=== PATIENT | male | born 1950 | race Caucasian/White ===

== ENCOUNTER 2024-11-22 11:50 | Inpatient (IN) | payer MEDICARE ==
--- NOTE | 2024-11-22 12:23 | ED ---
General Adult HPI - General Chief complaint: Extremity Problem,Nontraumatic Stated complaint: Left arm weakness Time Seen by Provider: 11/22/24 12:01 Source: patient, RN notes reviewed Mode of arrival: ambulatory Limitations: no limitations - History of Present Illness Initial comments: Patient is a 74-year-old male present to the emergency department with concerns for left arm weakness. Onset of symptoms was when he woke this morning. Symptoms have improved. Patient does have an odd sensation to his left arm that has mostly improved. No headache. No neck pain. Patient does have minimal discomfort left trapezius. On examination patient feels weakness has resolved. Patient does have chronic Dupuytren's contracture in left hand. - Related Data Home Medications Medication Instructions Recorded Confirmed No Known Home Medications 11/22/24 11/22/24 Allergies Allergy/AdvReac Type Severity Reaction Status Date / Time No Known Allergies Allergy Verified 11/22/24 16:30 Review of Systems ROS Statement: Those systems with pertinent positive or pertinent negative responses have been documented in the HPI. ROS Other: All systems not noted in ROS Statement are negative. Constitutional: Denies: fever Eyes: Denies: eye pain ENT: Denies: ear pain Respiratory: Denies: cough Cardiovascular: Denies: chest pain Musculoskeletal: Reports: as per HPI Neurological: Reports: as per HPI. Denies: headache Past Medical History Past Medical History: No Reported History Past Surgical History: No Surgical Hx Reported Smoking Status: Current every day smoker Past Alcohol Use History: Occasional Past Drug Use History: Marijuana General Exam Limitations: no limitations General appearance: alert, in no apparent distress Head exam: Present: normocephalic Eye exam: Present: normal appearance, PERRL, EOMI Neck exam: Present: normal inspection. Absent: tenderness, meningismus Respiratory exam: Present: normal lung sounds bilaterally Cardiovascular Exam: Present: regular rate, normal rhythm, systolic murmur Expanded Peripheral pulses: 2+: Radial (L) GI/Abdominal exam: Present: soft. Absent: tenderness Extremities exam: Present: other (Dupuytren's contraction left hand) Back exam: Present: normal inspection. Absent: tenderness Neurological exam: Present: alert, oriented X3, CN II-XII intact. Absent: motor sensory deficit Expanded Neurological exam: Present: protecting the airway Speech: Present: fluid speech Cranial nerves: EOM's Intact: Normal, Facial Sensation: Normal Sensory exam: Upper Extremity Light Touch: Normal, Lower Extremity Light Touch: Normal Motor strength exam: RUE: 5, LUE: 5, RLE: 5, LLE: 5 Eye Response: (4) open spontaneously Motor Response: (6) obeys commands Verbal Response: (5) oriented Psychiatric exam: Present: normal affect, normal mood Skin exam: Present: normal color Course Vital Signs 11/22/24 11/22/24 11/22/24 11:51 13:00 15:00 Temperature 97.6 F Pulse Rate 56 L 52 L 52 L Respiratory 17 16 16 Rate Blood Pressure 148/88 146/84 138/85 O2 Sat by Pulse 98 98 100 Oximetry 11/22/24 16:00 Temperature Pulse Rate 51 L Respiratory 18 Rate Blood Pressure 140/84 O2 Sat by Pulse 99 Oximetry EKG Findings - EKG Results: EKG: interpreted by DORIE, sinus rhythm, normal axis, normal QRS, normal ST/T EKG shows: bradycardia Medical Decision Making - Medical Decision Making Was pt. sent in by a medical professional or institution (, PA, HEM MARKER, urgent care, hospital, or detention...) When possible be specific @ -No Did you speak to anyone other than the patient for history (EMS, parent, family, police, friend...)? What history was obtained from this source @ -No Did you review nursing and triage notes (agree or disagree)? Why? @ -I reviewed and agree with nursing and triage notes Were old charts reviewed (outside hosp., previous admission, EMS record, old EKG, old radiological studies, urgent care reports/EKG's, detention records)? Report findings @ -No old charts were reviewed Differential Diagnosis (chest pain, altered mental status, abdominal pain women, abdominal pain men, vaginal bleeding, weakness, fever, dyspnea, syncope, headache, dizziness, GI bleed, back pain, seizure, CVA, palpatations, mental health, musculoskeletal)? @ -Differential Weakness: Hypoglycemia, shock, sepsis, hyponatremia, anemia, infection, WI, ETOH, adverse medicine reaction, overdose, stroke, this is not meant to be an all-inclusive list. EKG interpreted by me (3pts min.). @ -As above X-rays interpreted by me (1pt min.). @ -Chest x-ray unremarkable CT interpreted by me (1pt min.). @ -CT scan of the brain without acute abnormality U/S interpreted by me (1pt. min.). @ -None done What testing was considered but not performed or refused? (CT, X-rays, U/S, labs)? Why? @ -None What meds were considered but not given or refused? Why? @ -None Did you discuss the management of the patient with other professionals (professionals i.e. DrUma, PA, HEM MARKER, lab, RT, psych nurse, community mental health social worker, care transport nurse, teacher, planned giving officer, cyanide case hardener)? Give summary @ -Case discussed with Dr. Gordon who will admit covering hospital call Was smoking cessation discussed for >3mins.? @ -No Was critical care preformed (if so, how long)? @ -No Were there social determinants of health that impacted care today? How? (Homelessness, low income, unemployed, alcoholism, drug addiction, transportation, low edu. Level, literacy, decrease access to med. care, long-term, rehab)? @ -No Was there de-escalation of care discussed even if they declined (Discuss DNR or withdrawal of care, Hospice)? DNR status @ -No What co-morbidities impacted this encounter? (DM, HTN, Smoking, COPD, CAD, Cancer, CVA, ARF, Chemo, Hep., AIDS, mental health diagnosis, sleep apnea, morbid obesity)? @ -None Was patient admitted / discharged? Hospital course, mention meds given and route, prescriptions, significant lab abnormalities, going to OR and other pertinent info. @ -Patient presents with left arm weakness when he woke this morning that has now resolved. CT unremarkable. Patient will be admitted with concern for TIA. Patient reevaluated and updated. Undiagnosed new problem with uncertain prognosis? @ -No Drug Therapy requiring intensive monitoring for toxicity (Heparin, Nitro, Insulin, Cardizem)? @ -No Were any procedures done? @ -No Diagnosis/symptom? @ -TIA Acute, or Chronic, or Acute on Chronic? @ -Acute Uncomplicated (without systemic symptoms) or Complicated (systemic symptoms)? @ -Default Side effects of treatment? @ -No Exacerbation, Progression, or Severe Exacerbation? @ -No Poses a threat to life or bodily function? How? (Chest pain, USA, WI, pneumonia, PE, COPD, DKA, ARF, appy, cholecystitis, CVA, Diverticulitis, Homicidal, Suic idal, threat to staff... and all critical care pts) @ -Threat to neurological function - Lab Data Result diagrams: 11/22/24 12:50 11/22/24 12:50 Lab Results 11/22/24 11/22/24 11/22/24 Range/Units 12:50 12:50 12:50 WBC 7.10 (4.50-10.00) 10*3/uL RBC 4.82 (4.40-5.60) 10*6/uL Hgb 15.9 (13.0-17.0) g/dL Hct 46.5 (39.6-50.0) % MCV 96.5 (80.0-97.0) fL MCH 33.0 H (27.0-32.0) pg MCHC 34.2 (32.0-37.0) g/dL Plt Count 351 (140-440) 10*3/uL MPV 9.5 (9.5-12.2) fL Immature Gran % (Auto) 0.1 % Neutrophils % 67.7 % Lymphocytes % 20.6 % Monocytes % 7.3 % Eosinophils % 3.2 % Basophils % 1.1 % Immature Gran # 0.01 (0.00-0.04) 10*3/uL Neutrophils # 4.80 (1.80-7.70) 10*3/uL Lymphocytes # 1.46 (0.90-5.00) 10*3/uL Monocytes # 0.52 (0.20-1.00) 10*3/uL Eosinophils # 0.23 (0.04-0.35) 10*3/uL Basophils # 0.08 (0.00-0.10) 10*3/uL PT 10.2 (10.0-12.5) sec INR 0.9 (<1.2) APTT 21.8 L (22.0-30.0) sec Sodium 140 (137-145) mmol/L Potassium 4.9 (3.5-5.1) mmol/L Chloride 108 H (98-107) mmol/L Carbon Dioxide 23 (22-30) mmol/L Anion Gap 9 mmol/L BUN 17 (9-20) mg/dL Creatinine 0.84 (0.66-1.25) mg/dL Est GFR (CKD-EPI)AfAm >90 (>60 ml/min/1.73 sqM) Est GFR (CKD-EPI)NonAf 87 (>60 ml/min/1.73 sqM) Glucose 106 H (74-99) mg/dL Calcium 9.3 (8.4-10.2) mg/dL Total Bilirubin 0.7 (0.2-1.3) mg/dL AST 34 (17-59) U/L ALT 40 (4-49) U/L Alkaline Phosphatase 66 (38-126) U/L Creatine Kinase 42 L (55-170) U/L Troponin I (0.000-0.034) ng/mL Total Protein 7.0 (6.3-8.2) g/dL Albumin 4.2 (3.5-5.0) g/dL 11/22/24 Range/Units 12:50 WBC (4.50-10.00) 10*3/uL RBC (4.40-5.60) 10*6/uL Hgb (13.0-17.0) g/dL Hct (39.6-50.0) % MCV (80.0-97.0) fL MCH (27.0-32.0) pg MCHC (32.0-37.0) g/dL Plt Count (140-440) 10*3/uL MPV (9.5-12.2) fL Immature Gran % (Auto) % Neutrophils % % Lymphocytes % % Monocytes % % Eosinophils % % Basophils % % Immature Gran # (0.00-0.04) 10*3/uL Neutrophils # (1.80-7.70) 10*3/uL Lymphocytes # (0.90-5.00) 10*3/uL Monocytes # (0.20-1.00) 10*3/uL Eosinophils # (0.04-0.35) 10*3/uL Basophils # (0.00-0.10) 10*3/uL PT (10.0-12.5) sec INR (<1.2) APTT (22.0-30.0) sec Sodium (137-145) mmol/L Potassium (3.5-5.1) mmol/L Chloride (98-107) mmol/L Carbon Dioxide (22-30) mmol/L Anion Gap mmol/L BUN (9-20) mg/dL Creatinine (0.66-1.25) mg/dL Est GFR (CKD-EPI)AfAm (>60 ml/min/1.73 sqM) Est GFR (CKD-EPI)NonAf (>60 ml/min/1.73 sqM) Glucose (74-99) mg/dL Calcium (8.4-10.2) mg/dL Total Bilirubin (0.2-1.3) mg/dL AST (17-59) U/L ALT (4-49) U/L Alkaline Phosphatase (38-126) U/L Creatine Kinase (55-170) U/L Troponin I <0.012 (0.000-0.034) ng/mL Total Protein (6.3-8.2) g/dL Albumin (3.5-5.0) g/dL Disposition Clinical Impression: TIA (transient ischemic attack) Disposition: ADMITTED IP TO THIS [facility] Is patient prescribed a controlled substance at d/c from ED?: No
[2024-11-22 12:58] LABS: Basophils # (A) 0.08 10*3/uL (0.00-0.10); Basophils % (A) 1.1 %; Eosinophils # (A) 0.23 10*3/uL (0.04-0.35); Eosinophils % (A) 3.2 %; HCT 46.5 % (39.6-50.0); HGB 15.9 g/dL (13.0-17.0); Lymphocytes # (A) 1.46 10*3/uL (0.90-5.00); Lymphocytes % (A) 20.6 %; MCHC 34.2 g/dL (32.0-37.0); MCV 96.5 fL (80.0-97.0); Mean Platelet Volume 9.5 fL (9.5-12.2); Monocytes # (A) 0.52 10*3/uL (0.20-1.00); Monocytes % (A) 7.3 %; Neutrophils % (A) 67.7 %; Platelet Count 351 10*3/uL (140-440); RBC 4.82 10*6/uL (4.40-5.60); RDW 13.9 % (11.5-14.5)
--- NOTE | 2024-11-22 13:04 | XR ---
EXAMINATION TYPE: XR chest 2V DATE OF EXAM: 11/22/2024 1:00 PM COMPARISON: None TECHNIQUE: XR chest 2V Frontal and lateral views of the chest. CLINICAL INDICATION:Male, 74 years old with history of altered mental status; FINDINGS: Lungs/Pleura: There is no evidence of pleural effusion, focal consolidation, or pneumothorax. Pulmonary vascularity: Unremarkable. Heart/mediastinum: Cardiomediastinal silhouette is unremarkable. Atherosclerotic calcifications are seen in the aorta. Musculoskeletal: Multiple level degenerative disc disease changes seen throughout the spine. IMPRESSION: No acute cardiopulmonary disease/process. [facility], , 11/22/2024 1:02 PM
[2024-11-22 13:14] LABS: INR 0.9 (<1.2); Prothrombin Time 10.2 sec (10.0-12.5)
[2024-11-22 13:16] LABS: ALT 40 U/L (4-49); AST 34 U/L (17-59); African American GFR (CKD) >90 (>60 ml/min/1.73 sqM); Albumin 4.2 g/dL (3.5-5.0); Alkaline Phosphatase 66 U/L (38-126); Anion Gap 9 mmol/L; Blood Urea Nitrogen 17 mg/dL (9-20); Calcium 9.3 mg/dL (8.4-10.2); Carbon Dioxide 23 mmol/L (22-30); Chloride 108 mmol/L (98-107); Creatine Kinase 42 U/L (55-170); Glucose 106 mg/dL (74-99); Non-African American GFR(CKD) 87 (>60 ml/min/1.73 sqM); Potassium 4.9 mmol/L (3.5-5.1); Sodium 140 mmol/L (137-145); Total Bilirubin 0.7 mg/dL (0.2-1.3)
[2024-11-22 13:22] LABS: Partial Thromboplastin Time 21.8 sec (22.0-30.0)
--- NOTE | 2024-11-22 15:11 | CT ---
EXAMINATION TYPE: CT brain wo con DATE OF EXAM: 11/22/2024 2:57 PM COMPARISON: None. CLINICAL INDICATION: Male, 74 years old with history of L arm weak, left arm weakness TECHNIQUE: Brain: Axial CT images of the brain were obtained with coronal and sagittal reformats created and rev iewed. Contrast used: None. Oral contrast used: None. CT DLP: 1141.8 mGycm, Automated exposure control for dose reduction was used. FINDINGS: Brain: Extra-axial spaces: No abnormal extra-axial fluid collections. Ventricular system: Dilatation in proportion to cerebral atrophy. Cerebral parenchyma: Cerebral atrophy. No acute intraparenchymal hemorrhage or mass effect. The mast -white junction is well differentiated. Scattered hypoattenuating areas are seen within the white mat ter. Cerebellum: Unremarkable. Mass effect: No evidence of midline shift. Intracranial vasculature: Atherosclerotic calcifications of the intracranial vessels. Soft tissues: Normal. Calvarium/osseous structures: No depressed skull fracture. Paranasal sinuses and mastoid air cells: Mild scattered paranasal sinus disease. Visualized orbits: Bilateral aphakia IMPRESSION: No acute intracranial process. [facility], , 11/22/2024 3:08 PM
--- NOTE | 2024-11-22 15:20 | CT ---
EXAMINATION TYPE: CT angio head neck DATE OF EXAM: 11/22/2024 2:57 PM COMPARISON: CT head same day. CLINICAL INDICATION: Male, 74 years old with history of L arm weak; PHH, left arm weakness TECHNIQUE: Axially acquired helical CT angiogram of the head and neck was obtained with contrast. Axi al images are supplemented with 3D reconstructions and MIP images which were post-processed at an in dependent workstation. NASCET criteria used. Contrast used:65 ml mL of Isovue 370 with IV Contrast, Oral contrast used: None. CT DLP: 426.2 mGycm, Automated exposure control for dose reduction was used. FINDINGS: CTA HEAD: No evidence of acute intracranial hemorrhage, mass effect, or midline shift. The ventricles, sulci, a nd cisterns are unremarkable. Vertebral arteries: The vertebral arteries are patent. Vertebral artery dominance: Codominant Basilar artery: The basilar artery is intact. The basilar artery bifurcation is normal. Internal Carotid arteries: Atherosclerosis sclerosis of the intracranial vasculature. No high-grade s tenosis The cervical, petrous, cavernous and supraclinoid segments are normal. OLIMPIA: Patent with no evidence of aneurysm. ACOM: Present without evidence of aneurysm. MCA: Patent with no evidence of aneurysm. RAIL CAR UNLOADER: Patent with no evidence of aneurysm. PCOM: Hypoplastic bilaterally. Dural sinuses: Dominant right transverse sinus with more diminutive left. CTA NECK: Right Carotid System: The common carotid and external carotid arteries are patent. There is less than 25% stenosis at the c arotid bifurcation secondary to calcified/noncalcified plaque. The rest of the internal carotid arter y is patent. Left Carotid System: The common carotid and external carotid arteries are patent. There is less than 25% stenosis at the c arotid bifurcation secondary to calcified/noncalcified plaque. The rest of the internal carotid arter y is patent. Vertebral arteries are patent without evidence hemodynamically significant stenosis. There is a three-vessel aortic arch. The origins of the great vessels are patent. No evidence of hemo dynamically significant stenosis. Ascending thoracic aorta dilation up to 44 mm. IMPRESSION: 1. No evidence of dissection of the cervical internal carotid arteries or vertebral arteries. 2. No any evidence of significant stenosis at the carotid bifurcations. 3. No evidence of intracranial high-grade stenosis or intracranial aneurysm. 4. Ascending thoracic aorta ectasia up to 4 mm. [facility], , 11/22/2024 3:18 PM
[2024-11-22] MEDS ORDERED: NALOXONE 0.4 MG/ML 1 ML VIAL IVP PRN (16:08)
[2024-11-22] MEDS ORDERED: ACETAMINOPHEN TAB 325 MG TAB PO PRN (16:08)
[2024-11-22] MEDS ORDERED: ONDANSETRON 4 MG/2 ML VIAL IVP PRN (16:08)
[2024-11-22] MEDS ORDERED: HYDROcodone/APAP 5-325MG 1 EACH TAB PO PRN (16:08)
[2024-11-22] MEDS ORDERED: MELATONIN 3 MG TABLET PO PRN (16:08)
[2024-11-22] MEDS ORDERED: LORazepam 0.5 MG TAB PO PRN (16:45)
[2024-11-22] MEDS ORDERED: LORazepam 1 MG TAB PO PRN (16:45)
[2024-11-22] MEDS ORDERED: LORazepam 2 MG/ML INJ IV PRN ×3 (16:45)
[2024-11-22] MEDS: ASPIRIN 325 MG TAB PO STA (16:48)
--- NOTE | 2024-11-22 17:11 | P.HPIM ---
History of Present Illness H&P Date: 11/22/24 History of Presenting Illness: Patient is a very pleasant 74-year-old male with a past medical history of nicotine dependence, cataract surgery, daily alcohol use and left hand 3rd and 4th digit contracture. He presented to the emergency department with a chief complaint of transient left upper extremity numbness/weakness and involuntary muscle fasciculations beginning yesterday evening and progressively worsening in frequency and intensity. He denies anything like this ever happening to him in the past and denies having any injuries or falls. He reports these symptoms came on suddenly and denies having headache, lightheadedness, changes in vision or hearing, chest pain, palpitations, shortness of breath, cough or congestion, or any other complaints at this time. Patient states that he does not follow with a primary care provider. He does admit to smoking approximately 1 pack of cigarettes daily and admits to drinking approximately 3 beers daily. Upon arrival to our facility, patient underwent evaluation in the emergency department. Vital signs upon arrival show blood pressure 148/88, heart rate 56, respiratory rate 17, temp 97.6 F, and SpO2 of 98% on room air. EKG completed showing sinus bradycardia at 51 bpm with no significant T wave or ST abnormality showing no signs of acute ischemia upon personal review and interpretation. Chest x-ray negative for acute cardiopulmonary process. CT brain negative for acute intracranial process. CTA head and neck showing ascending thoracic aorta ectasia up to 4 mm but revealing no evidence of dissection of the cervical internal carotid arteries or vertebral arteries, no evidence of significant stenosis at carotid bifurcations, and no evidence of intracranial high-grade stenosis or intracranial aneurysm. Labs completed and reviewed. CBC showing no significant abnormalities. Coagulation profile showing a low PTT of 21.8. BMP showing mild hyperchloremia with chloride of 108 otherwise normal findings. Blood glucose was 106. Calcium was 9.3. Liver profile unremarkable. Creatinine kinase was low at 42. Troponin was negative at less than 0.012. Patient admitted under our services with consultation to neurology and orthopedic surgery. Review of systems: Pertinent positives and negatives as discussed in HPI, a complete review of systems was performed and all other systems are negative. Physical exam: Vital signs reviewed and stable. General: Nontoxic, no distress and appears stated age. Derm: Skin warm and dry, normal coloration for ethnicity. Head: Atraumatic, normocephalic and symmetric. Eyes: EOM's intact, no lid lag, and anicteric sclera Mouth: no lip lesions, mucus membranes moist Cardiovascular: regular rate and rhythm with normal S1S2, systolic murmur, posit antonio posterior tibial pulses bilaterally, and cap refill < 2 seconds. Lungs: Respirations even, regular, and unlabored on room air. Lungs CTA bilaterally, no rhonchi, no rales, no wheezing, and no accessory muscle usage. Abdominal: soft, nontender to palpation, no guarding, no appreciable organome galileo Ext: ROM intact. No gross muscle atrophy, no edema, no contractures Neuro: Speech clear, face symmetrical and CN II-XII grossly intact with no noted focal neuro deficits. Patient with moderate muscle fasciculations noted to Left upper extremity extending distally just below elbow into his hand. Psych: Alert and oriented to person, place, time, and situation. Appropriate and pleasant affect. Assessment and Plan of Care: Recurrent transient episodes of left upper extremity numbness/weakness and muscle fasciculations, rule out nerve compression vs benign fasciculation syndrome vs YIA Left hand 3rd and 4th digit contractures -Neurology consulted to rule out TIA -Orthopedic surgery consulted -CT cervical spine To be completed -Echocardiogram -TSH, Lipid profile, and Hgb A1c -NIH stroke scale with neuro checks every 4 hours and as needed -PT/OT consult -Fall precautions and provide pt with assistance as needed. -Likely consider outpatient EMG testing after discharge. -Obtain serum level, vitamin B12 and folate levels Alcohol use, daily use -Order placed for monitoring of CIWA scores and patient to be medicated with Ativan 0.5 mg every 4 hours as needed for CIWA score of 4-5, Ativan 1 mg every 4 hours for CIWA score of 6-7, Ativan 2 mg every 3 hours CIWA score of 8-9, and Ativan 2 mg every 2 hours forr CIWA score of 10 or greater. -Continuous IV hydration. -Thiamine 100 mg daily, and Multivitamin daily, and Folate 1 mg daily -Continued close monitoring of electrolytes and replace as needed. -Telemetry monitoring. Nicotine dependence -Recommend smoking cessation and order placed for nicotine patch 21 mg daily. Data and imaging reviewed: As stated above in HPI The patient is admitted with an anticipated less than 2 midnight stay for evaluation of transient left upper extremity weakness CODE STATUS: Full code DVT prophylaxis: Lovenox Discussed with: Patient, RN, and ED physician Anticipated discharge date: 24 to [address]: Home Patient was seen independently by Nurse Practitioner. This document was prepared using Vouch dictation software. Please allow for errors in paint department supervisor while rare they do occur. Rony Samson NP rendered care for this patient independently, reviewed the findings and plan as documented in the note above and agree with plan. I did n ot physically speak with or examine the patient on this date. Past Medical History Past Medical History: No Reported History Past Surgical History: No Surgical Hx Reported Smoking Status: Current every day smoker Past Alcohol Use History: Occasional Past Drug Use History: Marijuana Medications and Allergies Home Medications Medication Instructions Recorded Confirmed Type No Known Home Medications 11/22/24 11/22/24 History Allergies Allergy/AdvReac Type Severity Reaction Status Date / Time No Known Allergies Allergy Verified 11/22/24 16:30 Physical Exam Vitals: Vital Signs Temp Pulse Resp BP Pulse Ox 11/22/24 15:00 52 L 16 138/85 100 11/22/24 13:00 52 L 16 146/84 98 11/22/24 11:51 97.6 F 56 L 17 148/88 98 Intake and Output 11/22/24 11/22/24 11/22/24 06:59 14:59 22:59 Other: Weight 70.307 kg Results CBC & Chem 7: 11/22/24 12:50 11/22/24 12:50 Labs: Abnormal Lab Results - Last 24 Hours (Table) 11/22/24 11/22/24 11/22/24 Range/Units 12:50 12:50 12:50 MCH 33.0 H (27.0-32.0) pg APTT 21.8 L (22.0-30.0) sec Chloride 108 H (98-107) mmol/L Glucose 106 H (74-99) mg/dL Creatine Kinase 42 L (55-170) U/L
--- NOTE | 2024-11-22 17:12 | CT ---
EXAMINATION TYPE: CT cervical spine w con DATE OF EXAM: 11/22/2024 4:52 PM COMPARISON: CT same day. CLINICAL INDICATION: Male, 74 years old with history of left hand and lower arm fasiculations; left h and and lower arm fasiculations TECHNIQUE: Reconstructed Axial CT images from the skull base to the inferior aspect of T2 we obtained without intravenous contrast. Coronal and sagittal reformatted images were also reviewed. Contrast used:65cc mL of Isovue 370 with IV Contrast, (if blank None) Oral contrast used: (if blank None) CT DLP: 426.2 mGycm, Automated exposure control for dose reduction was used. FINDINGS: Fracture: None. Osseous structures: Multilevel degenerative disc disease changes with endplate spurring and disc oste ophyte complex's. Vertebral alignment: Alignment within normal limits. Spinal canal/Neural Foramina: Disc osteophyte complexes at C5-C6 with at least mild spinal canal sten osis. No evidence for significant neural foraminal stenosis. Neck soft tissues: Prevertebral soft tissues are within normal limits. Other: The airway is patent. The lung apices are clear. Contrast was administered: No significant stenosis of the vertebral arteries or carotid systems. IMPRESSION: 1. No evidence of cervical spine fracture. 2. Moderate multilevel degenerative disc disease. [facility], , 11/22/2024 5:10 PM
[2024-11-22 17:27] LABS: Magnesium 2.3 mg/dL (1.6-2.3)
[2024-11-22] MEDS: NICOTINE 21MG/24HR PATCH TRANSDERM SCH (21:14)
[2024-11-23] MEDS: THIAMINE 100 MG TAB PO SCH (08:59)
[2024-11-23] MEDS: FOLIC ACID 1 MG TAB PO SCH (09:02)
[2024-11-23] MEDS: MULTIVITAMINS, THERA 1 EACH TAB PO SCH (09:02)
[2024-11-23] MEDS: ASPIRIN 81 MG PO SCH (09:04)
[2024-11-23] MEDS: ENOXAPARIN 40 MG/0.4 ML SYRINGE SQ SCH (09:04)
[2024-11-23] MEDS: ATORVASTATIN 80 MG TAB PO SCH (09:04)
[2024-11-23 11:07] LABS: ALT 33 U/L (10-49); AST 21 U/L (14-35); Albumin 3.8 g/dL (3.8-4.9); Alkaline Phosphatase 72 U/L (41-126); BUN/Creat Ratio 20.38 Ratio (12.00-20.00); Blood Urea Nitrogen 16.3 mg/dL (9.0-27.0); Calcium 8.8 mg/dL (8.7-10.3); Carbon Dioxide 20.3 mmol/L (21.6-31.8); Chloride 109 mmol/L (96-109); Glucose 94 mg/dL (70-110); Magnesium 2.2 mg/dL (1.5-2.4); Potassium 4.2 mmol/L (3.5-5.5); Sodium 139 mmol/L (135-145); Total Bilirubin 0.3 mg/dL (0.3-1.2); Total Protein 5.8 g/dL (6.2-8.2)
[2024-11-23 11:34] LABS: HCT 44.9 % (39.6-50.0); HGB 14.9 g/dL (13.0-17.0); MCH 32.3 pg (27.0-32.0); MCHC 33.2 g/dL (32.0-37.0); MCV 97.2 FL (80.0-97.0); Mean Platelet Volume 9.8 FL (9.5-12.2); NRBC Per 100 WBC 0 X 10*3/uL (0.00-0.01); Platelet Count 342 X 10*3/uL (140-440); RBC 4.62 X 10*6/uL (4.40-5.60); RDW 14.1 % (11.5-14.5); WBC 7.97 X 10*3/uL (4.50-10.00)
[2024-11-23 11:42] LABS: Chol/HDL Ratio 2.83 Ratio; LDL Cholesterol,Calculated 86.8 mg/dL (0.0-131.0)
--- NOTE | 2024-11-23 15:27 | P.CNOR ---
History of Present Illness - [facility] Consult date: 11/23/24 Consult reason: other (Left arm weakness and left hand contracture) History of present illness: Epifanio is a 74 y/o male with no previous medical history, who presented to the ED at [facility] yesterday with left arm weakness and numbness. He states he had a few episodes of the same symptoms last week but it resolved. This time however, his symptoms did not improved and he became worried. He states he had movements to this left forearm that were involuntary but they have improved since coming to the hospital. The patient has have contracture in his left hand that he states his brother and father also have the same contracture. He is experiencing new numbness in his left middle, ring, and small fingers with weakness with gripping of all of his fingers. Orthopedics was consulted for further evaluation. Neurology has also seen the patient to rule out TIA/CVA. Review of Systems Constitutional: Denies chills, Denies fatigue, Denies fever Cardiovascular: Denies chest pain, Denies shortness of breath Musculoskeletal: Reports as per HPI Neurological: Reports numbness, Reports weakness Past Medical History Past Medical History: No Reported History Past Surgical History: No Surgical Hx Reported Smoking Status: Current every day smoker Past Alcohol Use History: Occasional Past Drug Use History: Marijuana Medications and Allergies Home Medications Medication Instructions Recorded Confirmed Type No Known Home Medications 11/22/24 11/22/24 History Allergies Allergy/AdvReac Type Severity Reaction Status Date / Time No Known Allergies Allergy Verified 11/22/24 16:30 Physical Examination The patient is a 74 y/o male in no acute distress. He is alert and oriented x3. Exam of the cervical spine reveals skin at the cervical spine is clear. Patient is nontender to palpation at the midline. There is some paravertebral spasm at the base of the neck on the left side. Negative Spurling sign bilaterally. Patient has limited motion when looking side to side. Normal flexion and extension. Right upper extremity: Motor strength of the upper extremity is 5/5 including the deltoids, biceps, triceps, device sales consultant, interossei, thumb extension, wrist flexion and extension. Left upper extremity: Motor strength of the upper extremity is 3/5 including the deltoids, biceps, triceps, device sales consultant, interossei, thumb extension, wrist flexion and extension. Subjective numbness to the left middle, ring, and small fingers. Left hand exam: Dupuytren's Cords - left middle and ring fingers Nodules - Contracture - left middle and ring finger MP joints 60 degrees. Table Top test - Positive Cirulatory status is intact. Results Cervical CT reviewed with Dr. Olmos's team. Imaging is limited. - Labs Labs: Abnormal Lab Results - Last 24 Hours (Table) 11/23/24 11/23/24 Range/Units 06:17 06:17 MCV 97.2 H (80.0-97.0) FL MCH 32.3 H (27.0-32.0) pg Carbon Dioxide 20.3 L (21.6-31.8) mmol/L BUN/Creatinine Ratio 20.38 H (12.00-20.00) Ratio Total Protein 5.8 L (6.2-8.2) g/dL H & H 11/22/24 11/23/24 Range/Units 12:50 06:17 Hgb 15.9 14.9 (13.0-17.0) g/dL Hct 46.5 44.9 (39.6-50.0) % Coagulation 11/22/24 Range/Units 12:50 INR 0.9 (<1.2) Result Diagrams: 11/23/24 06:17 11/23/24 06:17 Assessment and Plan (1) Left cervical radiculopathy Current Visit: Yes Status: Acute Code(s): M54.12 - RADICULOPATHY, CERVICAL REGION SNOMED Code(s): 47084969102849742 (2) Dupuytren's contracture of left hand Current Visit: Yes Status: Acute Code(s): M72.0 - PALMAR FASCIAL FIBROMATOSIS [DUPUYTREN] SNOMED Code(s): 655394791 Plan: The clinical findings were discussed with the patient. The case was discussed with Dr. Wayne and Dr. Olmos. Due to the patient's weakness and numbness in the left arm and hand, we will order an MRI of the cervical spine. An MRI of the brain was ordered by neurology. Pain management will likely be consulted after the MRI. In regards to the left hand Dupuytren's contracture, the patient may follow up with our hand surgeons, Dr. Monet Donaldson or Dr. Alex Gautam for additional examination and treatment options after the patient is discharged from the hospital. A consult for Dr. Olmos was placed and he will follow up with the patient after the cervical MRI is completed with further recommendations in treatment.
--- NOTE | 2024-11-23 15:44 | P.PN ---
Subjective Progress Note Date: 11/23/24 Hospital Course: Patient is a very pleasant 74-year-old male with a past medical history of nicotine dependence, cataract surgery, daily alcohol use and left hand 3rd and 4th digit contracture. He presented to the emergency department with a chief complaint of transient left upper extremity numbness/weakness and involuntary muscle fasciculations beginning yesterday evening and progressively worsening in frequency and intensity. He denies anything like this ever happening to him in the past and denies having any injuries or falls. He reports these symptoms came on suddenly and denies having headache, lightheadedness, changes in vision or hearing, chest pain, palpitations, shortness of breath, cough or congestion, or any other complaints at this time. Patient states that he does not follow with a primary care provider. He does admit to smoking approximately 1 pack of cigarettes daily and admits to drinking approximately 3 beers daily. Upon arriv al to our facility, patient underwent evaluation in the emergency department. Vital signs upon arrival show blood pressure 148/88, heart rate 56, respiratory rate 17, temp 97.6 F, and SpO2 of 98% on room air. EKG completed showing sinus bradycardia at 51 bpm with no significant T wave or ST abnormality showing no signs of acute ischemia upon personal review and interpretation. Chest x-ray negative for acute cardiopulmonary process. CT brain negative for acute intracranial process. CTA head and neck showing ascending thoracic aorta ectasia up to 4 mm but revealing no evidence of dissection of the cervical internal carotid arteries or vertebral arteries, no evidence of significant stenosis at carotid bifurcations, and no evidence of intracranial high-grade stenosis or intracranial aneurysm. Labs completed and reviewed. CBC showing no significant abnormalities. Coagulation profile showing a low PTT of 21.8. BMP showing mild hyperchloremia with chloride of 108 otherwise normal findings. Blood glucose was 106. Calcium was 9.3. Liver profile unremarkable. Creatinine kinase was low at 42. Troponin was negative at less than 0.012. Patient admitted under our services with consultation to neurology and orthopedic surgery. Physical exam: Patient was seen and fully evaluated at bedside this morning. He reports the numbness and weakness has slightly improved and he is able to have more closer to normal range of motion. His muscle fasciculations continue but no longer constant and are now intermittent. He denies any other complaints including headache, lightheadedness, dizziness, chest pain, palpitations, shortness of breath. Vital signs reviewed and stable. General: Nontoxic, no distress and appears stated age. Derm: Skin warm and dry, normal coloration for ethnicity. Head: Atraumatic, normocephalic and symmetric. Eyes: EOM's intact, no lid lag, and anicteric sclera Mouth: no lip lesions, mucus membranes moist Cardiovascular: regular rate and rhythm with normal S1S2, systolic murmur, positive posterior tibial pulses bilaterally, and cap refill < 2 seconds. Lungs: Respirations even, regular, and unlabored on room air. Lungs CTA bilaterally, no rhonchi, no rales, no wheezing, and no accessory muscle usage. Abdominal: soft, nontender to palpation, no guarding, no appreciable organomegaly Ext: ROM intact. No gross muscle atrophy, no edema, no contractures Neuro: Speech clear, face symmetrical and CN II-XII grossly intact with no noted focal neuro deficits. Patient with mild muscle fasciculations noted to Left upper extremity extending distally just below elbow into his hand. Psych: Alert and oriented to person, place, time, and situation. Appropriate and pleasant affect. Assessment and Plan of Care: Recurrent transient episodes of left upper extremity numbness/weakness and muscle fasciculations, rule out nerve compression vs benign fasciculation syndrome vs TIA Left hand 3rd and 4th digit contractures -Neurology consulted to rule out TIA -Orthopedic surgery consulted -CT brain negative for acute process, CTA head and neck showing ascending thoracic aorta ectasia up to 4 mm but negative for acute process. CT cervical spine showing no evidence of cervical spine fracture and moderate multilevel degenerative disc disease with osteophyte complexes at C5-C6 with at least mild spinal canal stenosis but no evidence for significant neuroforaminal stenosis. -Echocardiogram -Magnesium normal findings at 2.3. Folate 20.30, vitamin B12 206.0, and TSH of 3.470. Lipid profile also normal findings -NIH stroke scale with neuro checks every 4 hours and as needed -PT/OT consult -Fall precautions and provide pt with assistance as needed. -Likely consider outpatient EMG testing after discharge. -Obtain serum level, vitamin B12 and folate levels Alcohol use, daily use -Order placed for monitoring of CIWA scores and patient to be medicated with Ativan 0.5 mg every 4 hours as needed for CIWA score of 4-5, Ativan 1 mg every 4 hours for CIWA score of 6-7, Ativan 2 mg every 3 hours CIWA score of 8-9, and Ativan 2 mg every 2 hours forr CIWA score of 10 or greater. -Continuous IV hydration. -Thiamine 100 mg daily, and Multivitamin daily, and Folate 1 mg daily -Continued close monitoring of electrolytes and replace as needed. -Telemetry monitoring. Nicotine dependence -Recommend smoking cessation and order placed for nicotine patch 21 mg daily. Data and imaging reviewed: CT cervical spine showing no evidence of cervical spine fracture and moderate multilevel degenerative disc disease with osteophyte complexes at C5-C6 with at least mild spinal canal stenosis but no evidence for significant neuroforaminal stenosis. Vital signs reviewed. Blood pressure 141/81, heart rate 54, respiratory rate 18, temp 98.1 F, and SpO2 of 97% on room air. Labs completed and reviewed. CBC mild macrocytosis with MCV of 97.2 otherwise normal findings. BMP showing mild hypocarbia with bicarb of 20.3. Magnesium was 2.2. Liver profile unremarkable. Folate 20.30, vitamin B12 206.0, and TSH of 3.470. Lipid profile also normal findings. CODE STATUS: Full code DVT prophylaxis: Lovenox Discussed with: Patient, RN, and ED physician Anticipated discharge date: 24 to [address]: Home Patient was seen independently by Nurse Practitioner. This document was prepared using [email or web address] dictation software. Please allow for errors in power tool repairer while rare they do occur. Rony Samson NP rendered care for this patient independently, reviewed the findings and plan as documented in the note above and agree with plan. I did not physically speak with or examine the patient on this date. Objective - Vital Signs Vital signs: Vital Signs Temp 97.6 F 11/22/24 11:51 Pulse 52 L 11/23/24 06:28 Resp 16 11/23/24 06:28 BP 124/79 11/23/24 06:28 Pulse Ox 95 11/23/24 06:28 FiO2 Intake & Output 11/22/24 11/23/24 11/23/24 18:59 06:59 18:59 Weight 70.307 kg - Labs CBC & Chem 7: 11/23/24 06:17 11/23/24 06:17 Labs: Abnormal Lab Results - Last 24 Hours (Table) 04/27/25 04/27/25 04/27/25 Range/Units 12:50 12:50 12:50 MCH 33.0 H (27.0-32.0) pg APTT 21.8 L (22.0-30.0) sec Chloride 108 H (98-107) mmol/L Glucose 106 H (74-99) mg/dL Creatine Kinase 42 L (55-170) U/L
[2024-11-23] MEDS: ASPIRIN 81 MG PO STA (15:50)
--- NOTE | 2024-11-23 16:36 | P.CNNES ---
History of Present Illness Consult date: 11/23/24 Requesting physician: Rony Samson Reason for Consult: TIA work-up, LUE numbness/weakness History of Present Illness: Patient is a 74-year-old right-handed male came to the hospital yesterday at 11:50 AM for left arm weakness and some involuntary movement. Patient states that in the last couple weeks, he had couple instances, in which he would develop some lack of coordination with the left arm, feeling left arm being "light", just not feeling right in the left upper extremity. He would go to bed and symptoms will go away when he wakes up. Similar symptoms started on Saturday night, the night prior to arrival at 9 PM with similar symptoms as mentioned above. He laid down and fell asleep. Yesterday morning, on Saturday, he woke up at 9 AM and could hardly move his left hand. Left arm still not feel ing right. There was no slurred speech, no facial droop, no headache. He felt left arm was incoordinated, and when he arrived to the hospital, was noted to have some involuntary movement of the left arm. No dizziness or visual disturbance. He got concerned if he was having a stroke therefore came to the hospital. Patient does have history of previous Dupuytren's contracture involving the 2 digits of left hand. Vital signs on arrival blood pressure 148/88, pulse rate 56 temperature 97.6. B lood test shows normal CBC, PT PTT, normal CMP. CK is normal. B12 is borderline 206, folate 20.3. TSH normal. Chest x-ray showed no acute cardiopulmonary process. EKG showed sinus bradycardia. CT head revealed no acute intracranial process. I personally reviewed CT head, agree with the findings. CT of the cervical spine revealed no evidence of cervical spine fracture. Moderate multilevel degenerative disc disease. Home medications include none. Patient denies diabetes, hypertension. He smoked 1 pack/day for 10 years, quit for 15 to 20 years and then has started smoking very lightly, about 1 or 2 cigarettes/day since 1988. He smokes marijuana. Drinks alcohol regularly, about couple beers but not every day. Denies heavy alcoholism. Review of Systems All pertinent positive and negative review of systems mentioned in the HPI. Otherwise unremarkable. Past Medical History Past Medical History: No Reported History Past Surgical History: No Surgical Hx Reported Smoking Status: Current every day smoker Past Alcohol Use History: Occasional Past Drug Use History: Marijuana Medications and Allergies Home Medications Medication Instructions Recorded Confirmed Type No Known Home Medications 11/22/24 11/22/24 History Allergies Allergy/AdvReac Type Severity Reaction Status Date / Time No Known Allergies Allergy Verified 11/22/24 16:30 Physical Examination - Vital Signs Vital Signs: Vital Signs Temp Pulse Resp BP Pulse Ox 11/23/24 08:56 98.1 F 54 L 18 141/81 97 11/23/24 06:28 52 L 16 124/79 95 11/23/24 03:08 54 L 16 113/74 96 11/23/24 01:21 52 L 18 112/70 97 11/22/24 20:55 57 L 18 133/84 98 11/22/24 18:00 51 L 18 140/77 97 11/22/24 16:00 51 L 18 140/84 99 11/22/24 15:00 52 L 16 138/85 100 Patient is an elderly male, very pleasant, in no acute distress. Patient is alert awake oriented to time place and person. Speech and language functions are normal. Patient can name and repeat very well. No aphasia or dysarthria. Attention, concentration and fund of knowledge is adequate. On cranial nerve examination, pupils are equal, round and reacting to light, visual harris are full on confrontation, with no neglect on double simultaneous stimulation. Extraocular muscles are intact with no nystagmus. Face is symmetric, tongue protrudes to the midline. Palatal elevation and sensation normal, hearing and shoulder shrug normal, facial sensation normal. On muscle strength testing, there is left pronator drift about 30 degree, and the strength is normal in arms and legs distally and proximally. Deep tendon reflexes are symmetric 2 in the biceps, 2 brachioradialis, 2 at the knees, 1+ ankles and plantars downgoing bilaterally. Sensory to touch is equal with no neglect on double simultaneous stimulation. Cerebellar function showed mild ataxia for [id number] testing, only with the left upper extremity. No ataxia for [id number] testing on either side. Tone and bulk of muscles normal. Gait deferred.. On general examination, there is no carotid bruit or murmur, S1-S2 audible. Chest is clear on consultation. Abdomen is soft nontender. No organomegaly, bowel sounds present. Peripheral pulses are present. No peripheral edema. Results - Laboratory Findings CBC and BMP: 11/23/24 06:17 11/23/24 06:17 Abnormal Lab Findings: Abnormal Labs 11/22/24 11/22/24 11/22/24 12:50 12:50 12:50 MCV MCH 33.0 H APTT 21.8 L Chloride 108 H Carbon Dioxide BUN/Creatinine Ratio Glucose 106 H Creatine Kinase 42 L Total Protein 11/23/24 11/23/24 06:17 06:17 MCV 97.2 H MCH 32.3 H APTT Chloride Carbon Dioxide 20.3 L BUN/Creatinine Ratio 20.38 H Glucose Creatine Kinase Total Protein 5.8 L Assessment and Plan Assessment: * Acute onset of left arm weakness, incoordination with some involuntary movement. Rule out stroke/TIA. Patient denied any radicular pains, therefore doubt radicular in nature, although cannot be ruled out completely. * Recent history of similar symptoms x 2, in the last couple weeks, however were transient and resolved after taking a nap, rule out TIAs. * Dupuytren's contracture left hand, middle and ring fingers * B12 deficiency * Tobacco use * Marijuana use Plan: Patient's current NIH stroke scale is 2 (left arm weakness and incoordination). Patient not a candidate for TNK, as he arrived to the hospital >> 4.5 hours after onset of symptoms. MRI of the brain without contrast, rule out acute CVA 2-D echo with bubble study to rule out PFO CTA head and neck showed: No evidence of dissection of the cervical internal carotid arteries or vertebral arteries. No evidence of significant stenosis at the carotid bifurcations. No evidence of intracranial high-grade stenosis or intracranial aneurysm. Ascending thoracic aorta ectasia up to 4 mm. Fasting a.m. lipid panel with cholesterol 150, LDL 86, HDL 53 and triglycerides 51. Patient was given Lipitor 80 mg, but he has declined. Hemoglobin A1c 5.5 B12 206, folate 20.30, TSH 3.47. We will start B12 replacement. Permissive hypertension for next 24-48 hours Patient was not taking any antiplatelet medication at home. Patient was given aspirin 324 mg in the ER yesterday and today started 81 mg. Patient has declined, has not taken aspirin or Lipitor. After some encouragement, he did agree to take aspirin 324 mg now at this time. We will await further testing as above. Orthopedic surgery also seen the patient, they have initiated MRI of the cervical spine. Orthopedic surgery also on board. Neuro checks every 4 hours. Telemetry monitoring rule out any arrhythmia PT, OT, speech therapy DVT prophylaxis: Lovenox 40 mg subcu daily Recommend abstinence from tobacco, marijuana use and alcohol. Neurology will continue to follow. Thank you for the consult.
[2024-11-23] MEDS: CYANOCOBALAMIN 1,000 MCG/ML 1 ML VIAL IM SCH (17:08)
--- NOTE | 2024-11-24 11:47 | P.PN ---
Progress Note - Text Progress Note Date: 11/24/24 The patient is seen and examined at bedside. I was able to review the dictation from yesterday and his imaging thus far. I appreciate the neurology note as well. Patient had weakness of his left upper extremity which seems to be improving. He was having some fasciculations in his left forearm earlier today which are resolving. He feels his strength is making benefit of his left upper extremity. He denies any headaches. Denies any slurred speech or changes in his lower extremities. His MRI of his cervical spine is pending. On exam he is afebrile stable vital signs HEENT normocephalic atraumatic. There is no asymmetry. His cranial nerves II through XII seem grossly intact His upper extremities he has a Dupuytren's contracture of his left palm. His strength is good on exam today. He essentially has 5 out of 5 strength with bag valver wrist flexion extension biceps and triceps and shoulder abduction. There is no clonus. No gross upper motor neuron signs Assessment and plan Acute left upper extremity weakness, resolving Possible radiculopathy left upper extremity Rule out cerebrovascular accident Dupuytren's contracture left hand, unrelated The patient seems to be making some progress with his strength in his left upper extremity. He is not having significant pain or specific radicular symptoms. With his weakness I think it is worthwhile to review further imaging of the neurologic structures with MRI of the cervical spine which is ordered and planned for later today. He is being appropriately evaluated with neurology and is having an MRI of his brain as well today. He is making some progress and we should continue with conservative treatment for now. With his improvement in his strength I would not plan acute surgical intervention for his cervical spine. I discussed this with him today. Will continue to follow along and have further recommendations once MRI is completed.
--- NOTE | 2024-11-24 13:32 | P.PN ---
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 He presented to the emergency department with a chief complaint of transient left upper extremity numbness/weakness and involuntary muscle fasciculations beginning yesterday evening and progressively worsening in frequency and intensity. He denies anything like this ever happening to him in the past and denies having any injuries or falls. He reports these symptoms came on suddenly and denies having headache, lightheadedness, changes in vision or hearing, chest pain, palpitations, shortness of breath, cough or congestion, or any other complaints at this time. Patient states that he does not follow with a primary care provider. He does admit to smoking approximately 1 pack of cigarettes daily and admits to drinking approximately 3 beers daily. Upon arriv al to our facility, patient underwent evaluation in the emergency department. Vital signs upon arrival show blood pressure 148/88, heart rate 56, respiratory rate 17, temp 97.6 F, and SpO2 of 98% on room air. EKG completed showing sinus bradycardia at 51 bpm with no significant T wave or ST abnormality showing no signs of acute ischemia upon personal review and interpretation. Chest x-ray negative for acute cardiopulmonary process. CT brain negative for acute intracranial process. CTA head and neck showing ascending thoracic aorta ectasia up to 4 mm but revealing no evidence of dissection of the cervical internal carotid arteries or vertebral arteries, no evidence of significant stenosis at carotid bifurcations, and no evidence of intracranial high-grade stenosis or intracranial aneurysm. Labs completed and reviewed. CBC showing no significant abnormalities. Coagulation profile showing a low PTT of 21.8. BMP showing mild hyperchloremia with chloride of 108 otherwise normal findings. Blood glucose was 106. Calcium was 9.3. Liver profile unremarkable. Creatinine kinase was low at 42. Troponin was negative at less than 0.012. Patient admitted under our services with consultation to neurology and orthopedic surgery. Physical exam: Patient was seen and fully evaluated at bedside this morning. He reports the weakness continues and the numbness has been more intermittent and seems to be worse with the fasciculations. Patient reports he had severe fasciculations throughout the night but states this morning they have seem to improve significantly. Patient reports the tremors/fasciculation were definitely at its worst last night. He denies any other complaints including headache, lightheadedness, dizziness, chest pain, palpitations, or shortness of breath. He is awaiting to be taken down for MRI this afternoon. Vital signs reviewed and stable. General: Nontoxic, no distress and appears stated age. Derm: Skin warm and dry, normal coloration for ethnicity. Head: Atraumatic, normocephalic and symmetric. Eyes: EOM's intact, no lid lag, and anicteric sclera Mouth: no lip lesions, mucus membranes moist Cardiovascular: regular rate and rhythm with normal S1S2, systolic murmur, positive posterior tibial pulses bilaterally, and cap refill < 2 seconds. Lungs: Respirations even, regular, and unlabored on room air. Lungs CTA bilaterally, no rhonchi, no rales, no wheezing, and no accessory muscle usage. Abdominal: soft, nontender to palpation, no guarding, no appreciable organomegaly Ext: ROM intact. No gross muscle atrophy, no edema, no contractures Neuro: Speech clear, face symmetrical and CN II-XII grossly intact with no noted focal neuro deficits. Patient with mild muscle fasciculations noted to Left upper extremity extending distally just below elbow into his hand. Psych: Alert and oriented to person, place, time, and situation. Appropriate and pleasant affect. 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 Lemos recommending MRI brain. -Orthopedic surgery following discussed plan of care with orthopedic surgery PA recommending MRI cervical spine and likely consult to pain management pending these results. -CT brain negative for acute process, CTA head and neck showing ascending thoracic aorta ectasia up to 4 mm but negative for acute process. CT cervical spine showing no evidence of cervical spine fracture and moderate multilevel degenerative disc disease with osteophyte complexes at C5-C6 with at least mild spinal canal stenosis but no evidence for significant neuroforaminal stenosis. -Echocardiogram -Magnesium normal findings at 2.3. Folate 20.30, vitamin B12 206.0, and TSH of 3.470. Lipid profile also normal findings -Continue neuro checks every 4 hours and as needed -PT/OT consult -Fall precautions and provide pt with assistance as needed. -Likely consider outpatient EMG testing after discharge. Alcohol use, daily use -Continue monitoring of CIWA scores and patient to be medicated with Ativan 0.5 mg every 4 hours as needed for CIWA score of 4-5, Ativan 1 mg every 4 hours for CIWA score of 6-7, Ativan 2 mg every 3 hours CIWA score of 8-9, and Ativan 2 mg every 2 hours forr CIWA score of 10 or greater. -Continuous IV hydration. -Thiamine 100 mg daily, and Multivitamin daily, and Folate 1 mg daily -Continued close monitoring of electrolytes and replace as needed. -Telemetry monitoring. Nicotine dependence -Recommend smoking cessation and order placed for nicotine patch 21 mg daily. Data and imaging reviewed: Vital signs reviewed. Blood pressure soft this morning at 95/63, heart rate 60, respiratory rate 18, temp 98.2 F, and SpO2 of 99% on room air. Labs completed and reviewed. CBC mild macrocytosis with MCV of 97.2 otherwise normal findings. BMP showing mild hypocarbia with bicarb of 20.3. Magnesium was 2.2. Liver profile unremarkable. Folate 20.30, vitamin B12 206.0, and TSH of 3.470. Lipid profile also normal findings. CODE STATUS: Full code DVT prophylaxis: Lovenox Discussed with: Patient, RN, neurologist, and orthopedic PA Anticipated discharge date: Pending completion of MRI and echocardiogram Anticipated discharge place: Home Patient was seen independently by Nurse Practitioner. This document was prepared using [employer] dictation software. 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 Rony Samson NP rendered care for this patient independently, reviewed the findings and plan as documented in the note above and agree with plan. I did not physically speak with or examine the patient on this date. Objective - Vital Signs Vital signs: Vital Signs Temp 97.7 F 11/24/24 01:52 Pulse 45 L 11/24/24 01:52 Resp 16 11/24/24 01:52 BP 118/60 11/24/24 01:52 Pulse Ox 96 11/24/24 01:52 FiO2 Intake & Output 11/23/24 11/24/24 11/24/24 18:59 06:59 18:59 Weight 70.307 kg Other: # Voids 2 1 # Bowel Movements 0 - Labs CBC & Chem 7: 11/23/24 06:17 11/23/24 06:17 Labs: Abnormal Lab Results - Last 24 Hours (Table) 11/23/24 11/23/24 Range/Units 06:17 06:17 MCV 97.2 H (80.0-97.0) FL MCH 32.3 H (27.0-32.0) pg Carbon Dioxide 20.3 L (21.6-31.8) mmol/L BUN/Creatinine Ratio 20.38 H (12.00-20.00) Ratio Total Protein 5.8 L (6.2-8.2) g/dL
--- NOTE | 2024-11-24 13:37 | MR ---
EXAMINATION TYPE: MR cervical spine wo con DATE OF EXAM: 11/24/2024 12:58 PM COMPARISON: None. CLINICAL INDICATION: Male, 74 years old with history of left cervical radiculopathy, Left arm weaknes s. TECHNIQUE: Multiplanar MultiSpin echo imaging of the cervical spine was performed. FINDINGS: C2-C3: No evidence for degenerative disc disease. No disc bulge/herniation or protrusion. No Canal stenosis. Foramina are patent bilaterally. C3-C4: No evidence for degenerative disc disease. No disc bulge/herniation or protrusion. No Canal stenosis. Foramina are patent bilaterally. C4-C5: No evidence for degenerative disc disease. No disc bulge/herniation or protrusion. No Canal stenosis. Foramina are patent bilaterally. C5-C6: Moderate disc desiccation with subligamentous protrusion noted posterior centrally. Effacement ventral thecal sac and mild ventral CORD contact. No evidence for stenosis or compressive myelopathy . Degenerative changes of the cervical apophyseal joints with moderate narrowing seen on the right. C6-C7: Mild disc desiccation noted. No disc bulge/herniation or protrusion. No Canal stenosis. For ernie are patent bilaterally. C7-T1: No evidence for degenerative disc disease. No disc bulge/herniation or protrusion. No Canal stenosis. Foramina are patent bilaterally. Cervical segments are intact. There is normal alignment. Cervical spinal cord is of normal signal. Craniovertebral junction relationships are within normal limits. IMPRESSION: 1. Disc desiccation is noted. 2. Subligamentous protrusion at C5-6 as discussed above. At least moderate right-sided neural foraminal encroachment at this level. [facility], , 11/24/2024 1:35 PM
--- NOTE | 2024-11-24 13:40 | MR ---
EXAMINATION TYPE: MR brain wo con DATE OF EXAM: 11/24/2024 12:36 PM COMPARISON: None. CLINICAL INDICATION: Male, 74 years old with history of possible CVA, Left arm weakness, evaluate for CVA. TECHNIQUE: Multi planar multi sequence imaging of the brain. FINDINGS: The ventricles, basal cisterns and sulci overlying the cerebral convexities are mildly enlarged. There is evidence of mild periventricular white matter ischemic demyelination. Remote deep white matter insults are also noted. Diffusion-weighted imaging demonstrates multiple small focal areas of increased signal within the rig ht parietal-occipital region as well as the high right frontal lobe and a single focus right frontal lobe. There may also be a tiny focus at the high left parietal occipital region. Findings are felt to reflect foci of ischemia secondary to embolic process. Correlate clinically. No hemorrhagic transfor mation. There is no evidence for midline shift or mass effect. Acute intracranial hemorrhage or extra-axial collection is not evident. The paranasal sinuses and mastoid air cells are well-aerated. IMPRESSION: Diffusion-weighted imaging demonstrates multiple small focal areas of increased signal within the rig ht parietal-occipital region as well as the high right frontal lobe and a single focus right frontal lobe. There may also be a tiny focus at the high left parietal occipital region. Findings are felt to reflect foci of ischemia secondary to embolic process. Correlate clinically. No hemorrhagic transfor mation. [facility], , 11/24/2024 1:37 PM
--- NOTE | 2024-11-24 16:29 | P.PN ---
Subjective Progress Note Date: 11/24/24 Patient was seen for a follow-up. Patient is walking around, fully dressed, wants to go home. He continues to have some weakness of the left arm. No new concerns. Objective - Vital Signs Vital signs: Vital Signs Temp 98 F 11/24/24 15:00 Pulse 59 L 11/24/24 15:00 Resp 18 11/24/24 15:00 BP 108/73 11/24/24 15:00 Pulse Ox 99 11/24/24 15:00 FiO2 Intake & Output 11/23/24 11/24/24 11/24/24 18:59 06:59 18:59 Intake Total 650 Balance 650 Weight 70.307 kg Intake: Oral 650 Other: # Voids 2 1 2 # Bowel Movements 0 0 - Exam Mental status, speech and language functions are normal. Cranial nerves normal. Patient still has mild left pronator drift. Examination otherwise unchanged. Gait is normal. - Labs CBC & Chem 7: 11/23/24 06:17 11/23/24 06:17 Assessment and Plan Assessment: * Acute ischemic stroke, multiple small region involving the right MCA vascular territory. Patient is presented with acute onset of left arm weakness, incoordination with some involuntary movement. * Recent history of similar symptoms x 2, in the last couple weeks, however were transient and resolved after taking a nap, probable TIAs. * Dupuytren's contracture left hand, middle and ring fingers * B12 deficiency * Tobacco use * Marijuana use Plan: * Patient's current NIH stroke scale is 2 (left arm weakness and incoordination). Patient not a candidate for TNK, as he arrived to the hospital >> 4.5 hours after onset of symptoms. * MRI of the brain without contrast, confirmed multiple small focal areas of increased signal within the right parietal occipital region as well as high right frontal lobe and a single focus right frontal lobe. There may be also a tiny focus at the high left parietal occipital region. Findings are felt to reflect foci of ischemia secondary to embolic process. Correlate clinically. No hemorrhagic transformation. I personally reviewed MRI agree with the findings. * MRI of the cervical spine revealed subligamentous protrusion at C5-6. There is mild ventral cord contact. No evidence of stenosis or compressive myelopathy. * 2-D echo completed, results pending. * CTA head and neck showed: No evidence of dissection of the cervical internal c arotid arteries or vertebral arteries. No evidence of significant stenosis at the carotid bifurcations. No evidence of intracranial high-grade stenosis or intracranial aneurysm. Ascending thoracic aorta ectasia up to 4 mm. * Fasting a.m. lipid panel with cholesterol 150, LDL 86, HDL 53 and triglyc erides 51. Patient to be started on Lipitor 20 mg daily. Target LDL <70. Patient was not on statins at home. * Hemoglobin A1c 5.5 * B12 206, folate 20.30, TSH 3.47. Patient has received B12 injections 1000 mcg IM x 2 days. He can be continued on vitamin B12 500 mcg sublingually daily. It is OTC. * Optimize control of blood pressure. * Patient was not taking any antiplatelet medication at home. Patient has received aspirin 324 mg x 1 dose yesterday. Continue aspirin 81 mg daily. Suggest dual antiplatelet therapy with Plavix 75 mg daily for 21 days and then stop Plavix, continue aspirin. Patient is very reluctant to take medications. * Telemetry monitoring showed no obvious arrhythmia. * PT, OT, * DVT prophylaxis: Lovenox 40 mg subcu daily * Recommend abstinence from tobacco, marijuana use and alcohol. * Neurologically clear for discharge, if the 2D echo comes back normal.
[2024-11-24] MEDS: CLOPIDOGREL 75 MG TAB PO SCH (17:08)
[2024-11-25 00:47] VITALS: RESP 16
[2024-11-25] MEDS: ATORVASTATIN 20 MG TAB PO SCH (09:18)
--- NOTE | 2024-11-25 10:44 | P.PN ---
Progress Note - Text Progress Note Date: 11/25/24 Patient is seen and examined at bedside. He says he is feeling very good today. He says that the twitching in his left arm has subsided. He is not complaining of any right upper extremity issues. He feels his strength in his left upper extremities improving steadily. He denies any headaches or any new neurologic symptoms. His MRI was completed yesterday of his brain and his cervical spine. On exam He is afebrile stable vital signs. His face has no asymmetry. He has full active and passive range of motion of his upper extremities. He has a Dupuytren's contracture at his left hand which is chronic. His strength is improving in his left upper extremity with essentially 5 out of 5 strength. He has no issues with his right upper extremity. He has no neck pain. He has good range of motion of the neck MRI cervical spine on 11/24/2024 Shows some degenerative disc changes C5-6 with some disc protrusion with some right foraminal encroachment. MRI of his brain shows some changes as per report Assessment and plan Left upper extremity weakness improving Cerebrovascular accident causing left upper extremity weakness Degenerative disc disease C5-6 without symptoms at the extremities The patient's issues seem to stem from cerebrovascular accident. His his symptoms are proving improving steadily. He is being managed appropriately with medicine and neurology service. He should continue management as per neurology and medicine management. From an orthopedic spine standpoint, he has some degenerative changes at C5-6 with some right foraminal encroachment. This does not correlate with his new left upper extremity symptoms that he has been experiencing. I do not think his symptoms stem from his cervical spine. We do not have any plans for further imaging or spinal intervention at this point. It is okay for the patient be discharged from a orthopedic spine standpoint and follow-up on a as needed basis. Discussed this with him and answered his questions and he understands.
--- NOTE | 2024-11-25 13:44 | CA ---
Transthoracic Echo Report Name: Epifanio Encarnacion Age: 74 Gender: M : 1950 Exam Date: 11/24/2024 14:19 Exam Location: [facility] Ht (in): 69 Wt (lb): 155 Ordering Physician: Rony Samson Attending/Referring Phys: Surfboard Designer Darren Negrete RDCS Procedure CPT: Indications: TIA workup, LUE numbness/weakness Cardiac Hx: Technical Quality: Good Contrast 1: Total Dose (mL): Contrast 2: Total Dose (mL): MEASUREMENTS (Male / Female) Normal Values 2D ECHO LV Diastolic Diameter PLAX 5.0 cm 4.2 - 5.9 / 3.9 - 5.3 cm LV Systolic Diameter PLAX 3.1 cm IVS Diastolic Thickness 0.9 cm 0.6 - 1.0 / 0.6 - 0.9 cm LVPW Diastolic Thickness 0.8 cm 0.6 - 1.0 / 0.6 - 0.9 cm LV Relative Wall Thickness 0.3 RV Internal Dim ED PLAX 3.1 cm LVOT Diameter 1.7 cm LA Systolic Diameter LX 4.8 cm 3.0 - 4.0 / 2.7 - 3.8 cm LV Diastolic Volume MOD BP 96.0 cm??? 67 - 155 / 56 - 104 cm??? LV Systolic Volume MOD BP 40.8 cm??? - 58 / 19 - 49 cm??? LV Ejection Fraction MOD BP 57.5 % >= 55 % LV Cardiac Index MOD BP 1609.6 cm???/min???m??? LV Diastolic Volume MOD 4C 91.8 cm??? LV Systolic Volume MOD 4C 36.6 cm??? LV Ejection Fraction MOD 4C 60.1 % LV Cardiac Index MOD 4C 1610.0 cm???/min???m??? LV Diastolic Length 4C 7.0 cm LV Systolic Length 4C 6.0 cm LV Diastolic Volume MOD 2C 92.1 cm??? LV Systolic Volume MOD 2C 43.5 cm??? LV Ejection Fraction MOD 2C 52.8 % LV Cardiac Index MOD 2C 1418.7 cm???/min???m??? LV Diastolic Length 2C 7.6 cm LV Systolic Length 2C 6.4 cm LA Volume 73.8 cm??? 18 - 58 / 22 - 52 cm??? LA Volume Index 39.8 cm???/m??? 16 - 28 cm???/m??? DOPPLER MV Area PHT 3.2 cm??? Mitral E Point Velocity 72.2 cm/s Mitral A Point Velocity 79.8 cm/s Mitral E to A Ratio 0.9 MV Deceleration Time 238.6 ms TR Peak Velocity 214.8 cm/s TR Peak Gradient 18.5 mmHg FINDINGS Left Ventricle Left ventricular ejection fraction is estimated at 55-60%. Normal Left ventricular size, wall thickness, systolic function with no obvious regional wall motion abnormalities. Left ventricular wall thickness normal. Right Ventricle Normal right ventricular size and function. Unable to estimate the right ventricular systolic pressure. Right Atrium Normal right atrial size. Left Atrium Moderately increased left atrial diameter. Moderately increased left atrial volume. Mildly increased left atrial area. Mitral Valve Mitral annular calcification. No mitral stenosis. Mild mitral regurgitation. Aortic Valve Trileaflet aortic valve. Thickened aortic valve without stenosis. Trace to mild aortic regurgitation. Tricuspid Valve Structurally normal tricuspid valve. No tricuspid stenosis. Mild tricuspid regurgitation. Pulmonic Valve Structurally normal pulmonic valve. No pulmonic stenosis. Trace pulmonic regurgitation. Pericardium No pericardial effusion. Aorta Aortic annulus normal. Mildly dilated proximal ascending aorta (tube). CONCLUSIONS Left ventricular ejection fraction 55 to 60% Moderately dilated left atrium Mild mitral digitation No pericardial effusion Previewed by: Dr. Vasiliy Beckham DO (Electronically Signed) Final Date: 25 November 2024 13:43
--- NOTE | 2024-11-25 13:45 | P.PN ---
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 He presented to the emergency department with a chief complaint of transient left upper extremity numbness/weakness and involuntary muscle fasciculations beginning yesterday evening and progressively worsening in frequency and intensity. He denies anything like this ever happening to him in the past and denies having any injuries or falls. He reports these symptoms came on suddenly and denies having headache, lightheadedness, changes in vision or hearing, chest pain, palpitations, shortness of breath, cough or congestion, or any other complaints at this time. Patient states that he does not follow with a primary care provider. He does admit to smoking approximately 1 pack of cigarettes daily and admits to drinking approximately 3 beers daily. Upon arriv al to our facility, patient underwent evaluation in the emergency department. Vital signs upon arrival show blood pressure 148/88, heart rate 56, respiratory rate 17, temp 97.6 F, and SpO2 of 98% on room air. EKG completed showing sinus bradycardia at 51 bpm with no significant T wave or ST abnormality showing no signs of acute ischemia upon personal review and interpretation. Chest x-ray negative for acute cardiopulmonary process. CT brain negative for acute intracranial process. CTA head and neck showing ascending thoracic aorta ectasia up to 4 mm but revealing no evidence of dissection of the cervical internal carotid arteries or vertebral arteries, no evidence of significant stenosis at carotid bifurcations, and no evidence of intracranial high-grade stenosis or intracranial aneurysm. Labs completed and reviewed. CBC showing no significant abnormalities. Coagulation profile showing a low PTT of 21.8. BMP showing mild hyperchloremia with chloride of 108 otherwise normal findings. Blood glucose was 106. Calcium was 9.3. Liver profile unremarkable. Creatinine kinase was low at 42. Troponin was negative at less than 0.012. CT cervical spine showing no evidence of cervical spine fracture and moderate multilevel degenerative disc disease with osteophyte complexes at C5-C6 with at least mild spinal canal stenosis but no evidence for significant neuroforaminal stenosis. Patient admitted under our services with consultation to neurology and orthopedic surgery.MRI brain showing multiple small focal areas of increased signal within the right parietal occipital region as well as the right frontal lobe and a single focus in the right frontal lobe also reporting possible tiny focus at the left parietal-occipital region, findings reported to be reflected of foci of ischemia secondary to embolic process. MRI cervical spine showing disc desiccation is noted with subligamentous protrusion at C5-C6 with at least moderate right sided neuroforaminal encroachment at this level. Physical exam: Patient was seen and fully evaluated at bedside this morning. He reports the weakness, numbness, and fasciculations have improved. Patient very much wanting to be discharged at this time. Updated patient that we are awaiting echocardiogram report and event monitor to be placed. He denies any other complaints including headache, lightheadedness, dizziness, chest pain, palpitations, or shortness of breath. Vital signs reviewed and stable. General: Nontoxic, no distress and appears stated age. Derm: Skin warm and dry, normal coloration for ethnicity. Head: Atraumatic, normocephalic and symmetric. Eyes: EOM's intact, no lid lag, and anicteric sclera Mouth: no lip lesions, mucus membranes moist Cardiovascular: regular rate and rhythm with normal S1S2, systolic murmur, positive posterior tibial pulses bilaterally, and cap refill < 2 seconds. Lungs: Respirations even, regular, and unlabored on room air. Lungs CTA bilaterally, no rhonchi, no rales, no wheezing, and no accessory muscle usage. Abdominal: soft, nontender to palpation, no guarding, no appreciable organomegaly Ext: ROM intact. No gross muscle atrophy, no edema, no contractures Neuro: Speech clear, face symmetrical and CN II-XII grossly intact with no noted focal neuro deficits. Patient with mild muscle fasciculations noted to Left upper extremity extending distally just below elbow into his hand. Psych: Alert and oriented to person, place, time, and situation. Appropriate and pleasant affect. 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 Lemos. -Orthopedic surgery following discussed plan of care with orthopedic surgery PA stating no plans for surgical intervention at this time. -Echocardiogram was completed yesterday and report remains unavailable at this time -Magnesium normal findings at 2.3. Folate 20.30, vitamin B12 206.0, and TSH of 3.470. Lipid profile also normal findings -Continue neuro checks every 4 hours and as needed -PT/OT consult -Fall precautions and provide pt with assistance as needed. -May consider outpatient EMG testing after discharge. -Order placed for 30-day event monitor on discharge. -Continue daily aspirin 81 mg daily, Plavix 75 mg daily, and atorvastatin 20 mg daily Alcohol use, daily use -Continue monitoring of CIWA scores and patient to be medicated with Ativan 0.5 mg every 4 hours as needed for CIWA score of 4-5, Ativan 1 mg every 4 hours for CIWA score of 6-7, Ativan 2 mg every 3 hours CIWA score of 8-9, and Ativan 2 mg every 2 hours forr CIWA score of 10 or greater. -Thiamine 100 mg daily, and Multivitamin daily, and Folate 1 mg daily -Continued close monitoring of electrolytes and replace as needed. -Telemetry monitoring. Nicotine dependence -Recommend smoking cessation and order placed for nicotine patch 21 mg daily. Data and imaging reviewed: Vital signs reviewed. Blood pressure 113/74, heart rate 59, respiratory rate 16, temp 97.9 F, and SpO2 of 98% on room air. MRI brain showing multiple small focal areas of increased signal within the right parietal occipital region as well as the right frontal lobe and a single focus in the right frontal lobe also reporting possible tiny focus at the left parietal-occipital region, findings reported to be reflected of foci of ischemia secondary to embolic process. MRI cervical spine showing disc desiccation is noted with subligamentous protrusion at C5-C6 with at least moderate right sided neuroforaminal encroachment at this level. CODE STATUS: Full code DVT prophylaxis: Lovenox Discussed with: Patient, RN, neurologist, and orthopedic PA. Anticipated discharge date: Discharge delayed pending echocardiogram report Anticipated discharge place: Home Patient was seen independently by Nurse Practitioner. This document was prepared using [employer] dictation software. Please allow for errors in advice clerk while rare they do occur. Rony Samson NP rendered care for this patient independently, reviewed the findings and plan as documented in the note above and agree with plan. I did not physically speak with or examine the patient on this date. Objective - Vital Signs Vital signs: Vital Signs Temp 98.2 F 11/25/24 00:18 Pulse 55 L 11/25/24 00:18 Resp 16 11/25/24 00:18 BP 107/62 11/25/24 00:18 Pulse Ox 98 11/25/24 00:18 FiO2 Intake & Output 11/24/24 11/25/24 11/25/24 18:59 06:59 18:59 Intake Total 650 Balance 650 Intake: Oral 650 Other: # Voids 2 1 # Bowel Movements 0 - Labs CBC & Chem 7: 11/23/24 06:17 11/23/24 06:17
[2024-11-25 14:33] VITALS: BP 150/79; PULSE 55; TEMP 98.2
--- NOTE | 2024-11-25 15:36 | P.DS ---
Providers Date of admission: 11/24/24 12:22 Expected date of discharge: 11/25/24 Attending physician: Pedro Andrade MD Consults: 11/22/24 16:08 Consult Physician Routine Consulting Provider: Gamal Chaudhry Consult Reason/Comments: TIA work-up, LUE numbness/weakness Do you want consulting provider notified?: Yes 11/22/24 16:35 Consult Physician Routine Consulting Provider: Bradley Torres Consult Reason/Comments: left 3rd and 4th digit contractures, L hand numbess & muscle fasiculations Do you want consulting provider notified?: Yes 11/23/24 15:09 Consult Physician Routine Consulting Provider: Nas Olmos Consult Reason/Comments: left cervical radiculopathy Do you want consulting provider notified?: Already Contacted Primary care physician: Stated None Hospital Course: Discharge Diagnosis: 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 Continue daily aspirin 81 mg daily, Plavix 75 mg daily, and atorvastatin 40 mg daily Echocardiogram completed, no reported PFO or valvular abnormalities.. Patient denies history of atrial fibrillation, discharged home with 30-day event monitor. 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 He presented to the emergency department with a chief complaint of transient left upper extremity numbness/weakness and involuntary muscle fasciculations beginning yesterday evening and progressively worsening in frequency and intensity. He denies anything like this ever happening to him in the past and denies having any injuries or falls. He reports these symptoms came on suddenly and denies having headache, lightheadedness, changes in vision or hearing, chest pain, palpitations, shortness of breath, cough or congestion, or any other complaints at this time. Patient states that he does not follow wi th a primary care provider. He does admit to smoking approximately 1 pack of cigarettes daily and admits to drinking approximately 3 beers daily. Upon arrival to our facility, patient underwent evaluation in the emergency department. Vital signs upon arrival show blood pressure 148/88, heart rate 56, respiratory rate 17, temp 97.6 F, and SpO2 of 98% on room air. EKG completed showing sinus bradycardia at 51 bpm with no significant T wave or ST abnormality showing no signs of acute ischemia upon personal review and interpretation. Chest x-ray negative for acute cardiopulmonary process. CT brain negative for acute intracranial process. CTA head and neck showing ascending thoracic aorta ectasia up to 4 mm but revealing no evidence of dissection of the cervical internal carotid arteries or vertebral arteries, no evidence of significant stenosis at carotid bifurcations, and no evidence of intracranial high-grade stenosis or intracranial aneurysm. Labs completed and reviewed. CBC showing no significant abnormalities. Coagulation profile showing a low PTT of 21.8. BMP showing mild hyperchloremia with chloride of 108 otherwise normal findings. Blood glucose was 106. Calcium was 9.3. Liver profile unremarkable. Creatinine kinase was low at 42. Troponin was negative at less than 0.012. CT cervical spine showing no evidence of cervical spine fracture and moderate multilevel degenerative disc disease with osteophyte complexes at C5-C6 with at least mild spinal canal stenosis but no evidence for significant neuroforaminal stenosis. Patient admitted under our services with consultation to neurology and orthopedic surgery.MRI brain showing multiple small focal areas of increased signal within the right parietal occipital region as well as the right frontal lobe and a single focus in the right frontal lobe also reporting possible tiny focus at the left parietal-occipital region, findings reported to be reflected of foci of ischemia secondary to embolic process. MRI cervical spine showing disc desiccation is noted with subligamentous protrusion at C5-C6 with at least moderate right sided neuroforaminal encroachment at this level. Lipid profile unremarkable. Hemoglobin A1c 5.5%. Echocardiogram completed showing preserved EF of 55 to 60% with moderately dilated left atrium and mild mitral regurgitation. Patient to have event monitor placed and has been cleared by neurology and orthospine surgery for discharge at this time. Patient discharged home on dual antiplatelet therapy with aspirin and Plavix x 21 days then aspirin indefinitely along with atorvastatin, vitamin B12, thiamine, and folic acid. Patient to follow-up outpatient tomorrow with Dr. Koch on 11/26/24 at 10 AM. Physical exam: Vital signs reviewed and stable. General: Nontoxic, no distress and appears stated age. Derm: Skin warm and dry, normal coloration for ethnicity. Head: Atraumatic, normocephalic and symmetric. Eyes: EOM's intact, no lid lag, and anicteric sclera Mouth: no lip lesions, mucus membranes moist Cardiovascular: regular rate and rhythm with normal S1S2, systolic murmur, positive posterior tibial pulses bilaterally, and cap refill < 2 seconds. Lungs: Respirations even, regular, and unlabored on room air. Lungs CTA bilaterally, no rhonchi, no rales, no wheezing, and no accessory muscle usage. Abdominal: soft, nontender to palpation, no guarding, no appreciable organomegaly Ext: ROM intact. No gross muscle atrophy, no edema, no contractures Neuro: Speech clear, face symmetrical and CN II-XII grossly intact with no noted focal neuro deficits. Patient with mild muscle fasciculations noted to Left upper extremity extending distally just below elbow into his hand. Psych: Alert and oriented to person, place, time, and situation. Appropriate and pleasant affect. A total of 33 minutes of time were spent preparing this complex discharge summary. Pt was discharged on 11/25/24 at 3:33 PM. Patient was seen independently by Nurse Practitioner. This document was prepared using [employer] dictation software. Please allow for errors in design engineer while rare they do occur. Rony Samson NP rendered care for this patient independently, reviewed the findings and plan as documented in the note above. I did not physically speak with or examine the patient on this date. .. Patient Condition at Discharge: Stable Plan - Discharge Summary Discharge Rx Participant: No New Discharge Prescriptions: New Clopidogrel [Plavix] 75 mg PO DAILY 20 Days #20 tab Aspirin 81 mg PO DAILY 90 Days #90 tab Folic Acid 1 mg PO DAILY 30 Days #30 tab Nicotine 21Mg/24Hr Patch [Habitrol] 1 patch TRANSDERM DAILY 30 Days #30 patch Atorvastatin [Lipitor] 40 mg PO DAILY 90 Days #90 tablet Multivitamins, Thera [Multivitamin (formulary)] 1 each PO DAILY 30 Days #30 tab Thiamine [Vitamin B-1] 100 mg PO DAILY 30 Days #30 tab Cyanocobalamin (Vitamin B-12) [Vitamin B-12] 1,000 mcg PO DAILY 30 Days #30 tablet Discharge Medication List Aspirin 81 mg PO DAILY 90 Days #90 tab 11/25/24 [Rx] Atorvastatin [Lipitor] 40 mg PO DAILY 90 Days #90 tablet 11/25/24 [Rx] Clopidogrel [Plavix] 75 mg PO DAILY 20 Days #20 tab 11/25/24 [Rx] Cyanocobalamin (Vitamin B-12) [Vitamin B-12] 1,000 mcg PO DAILY 30 Days #30 tablet 11/25/24 [Rx] Folic Acid 1 mg PO DAILY 30 Days #30 tab 11/25/24 [Rx] Multivitamins, Thera [Multivitamin (formulary)] 1 each PO DAILY 30 Days #30 tab 11/25/24 [Rx] Nicotine 21Mg/24Hr Patch [Habitrol] 1 patch TRANSDERM DAILY 30 Days #30 patch 11/25/24 [Rx] Thiamine [Vitamin B-1] 100 mg PO DAILY 30 Days #30 tab 11/25/24 [Rx] Follow up Appointment(s)/Referral(s): Lazaro Benavides MD [REFERRING] - 2 Weeks Monet Donaldson [Doctor of Osteopathic Medicine] - As Needed (or Dr. Alex Gautam for evaluation of your left hand Dupuytren's contracture. ) Homero Koch DO [REFERRING] - 11/26/24 10:00 am (PLEASE ENSURE YOU FOLLOW UP SCHEDULED AND ARRIVE 15 MINUTES PRIOR TO APPOINTMENT TIME) Patient Instructions/Handouts: Ischemic Stroke (DC) Activity/Diet/Wound Care/Special Instructions: Activity: As tolerated. Take breaks as needed. Diet: Heart healthy and carb consistent diet. Special Instructions: Take all of your medications as directed and remember to keep all of your doctor's appointments and follow-up as needed. Thank you for allowing us to participate in your care, it was truly a pleasure having you for our patient!!! Discharge Disposition: HOME SELF-CARE
== END 2024-11-25 17:26 | disposition home or self-care (01) | DRG 66 ==
LOC: EC 11:50 → 6NMEDSUR 16:11 → 1SOBS 11-23 09:20 → OBSVTOIN 11-24 12:22
PROVIDERS: ADMIT Family Medicine; ATTEND Family Medicine
DX: I63.89 Other cerebral infarction (principal); D75.89 Other specified diseases of blood and blood-forming organs; G83.24 Monoplegia of upper limb affecting left nondominant side; I77.810 Thoracic aortic ectasia; M72.0 Palmar fascial fibromatosis [Dupuytren]; E87.8 Other disorders of electrolyte and fluid balance, not elsewhere classified; F17.210 Nicotine dependence, cigarettes, uncomplicated; R29.702 NIHSS score 2; R27.9 Unspecified lack of coordination; R25.3 Fasciculation; M50.122 Cervical disc disorder at C5-C6 level with radiculopathy; M25.78 Osteophyte, vertebrae; M48.02 Spinal stenosis, cervical region; F10.90 Alcohol use, unspecified, uncomplicated; E53.8 Deficiency of other specified B group vitamins; Z86.73 Personal history of transient ischemic attack (TIA), and cerebral infarction without residual deficits
CPT/HCPCS: 36415; 70450; 70496; 70498; 70551; 71046; 72126; 72141; 80053; 80061; 82550; 82607; 82746; 83036; 83735; 84443; 84484; 85025; 85027; 85610; 85730; 93005; 93270; 93306; 99285